=== PATIENT | female | born 1970 | race Caucasian/White ===

== ENCOUNTER 2017-04-16 14:24 | Emergency (ER) | payer BC ==
--- NOTE | 2017-04-16 16:08 | RAD ---
HISTORY: Left knee injury, patellar dislocation COMPARISONS: February 25, 2009 VIEWS: 2, Frontal and lateral views of the left knee FINDINGS: BONE DENSITY: Normal. BONES: There is no displaced fracture. JOINTS: There is no arthropathy. ALIGNMENT: There is no dislocation. SOFT TISSUES: Unremarkable. OTHER FINDINGS: None. IMPRESSION: NO ACUTE OSSEOUS INJURY. IF SYMPTOMS PERSIST, RECOMMEND REPEAT IMAGING.
--- NOTE | 2017-04-16 16:49 | ED ---
I, Oh,Tom, scribed for Corazon Gil MD on 04/16/17 at 1534 . Lower Extremity - HPI Summary HPI Summary: This 46 t/o female presents to ED for LLE knee pain since 1330 AM this afternoon. Pt was pulling off vine off tree in her yard at time of onset when vine gave and her LLE knee destabilized. Pt states she heard "a pop". She reports abnormal appearance of LLE patella MEDICAL CSR. The abnormality however resolved after pt lied on her side and knee cap slid back in place. PMHx includes partial ACL tear at same LLE knee in 2009. Other PMHx includes Crohn's dz and idiopathic cardiomyopathy s/p pacer and ICD placement. Pt lives with her . She is nonsmoker, nondrinker, and non substance abuse. Primary care involves Matt Mahmood NP. - History of Current Complaint Chief Complaint: EDExtremityLower Stated Complaint: LT KNEE INJURY Time Seen by Provider: 04/16/17 14:48 Hx Obtained From: Patient, Medical Records Hx Last Menstrual Period: 01/15/15 Onset of Pain: Immediate Pain Intensity: 2 Pain Scale Used: 0-10 Numeric - Allergies/Home Medications Allergies/Adverse Reactions: Allergies Allergy/AdvReac Type Severity Reaction Status Date / Time No Known Allergies Allergy Verified 04/16/17 14:32 PMH/Surg Hx/FS Hx/Imm Hx Endocrine/Hematology History: Reports: Hx Thyroid Disease - HYPOTHROID Denies: Hx Diabetes, Hx Systemic Lupus Erythematosus Cardiovascular History: Reports: Hx Cardiomegaly, Hx Hypertension - ON MEDICATION FOR, Hx Pacemaker/ICD, Other Cardiovascular Problems/Disorders - CARDIOMYOPATHY- DR. COWAN FOLLOWS Denies: Hx Congestive Heart Failure Respiratory History: Reports: Hx Sleep Apnea Denies: Hx Asthma, Hx Chronic Obstructive Pulmonary Disease (COPD) GI History: Reports: Hx Crohn's Disease - CURRENTLY HAVING ABDOMINAL PAIN, Other GI Disorders - Crohns. last flare up 08/2012 Denies: Hx Ulcer History: Denies: Hx Dialysis, Hx Renal Disease Musculoskeletal History: Reports: Hx Arthritis - BOTH HANDS Denies: Hx Rheumatoid Arthritis Sensory History: Reports: Hx Contacts or Glasses - GLASSES Denies: Hx Hearing Aid Opthamlomology History: Reports: Hx Contacts or Glasses - GLASSES Psychiatric History: Reports: Hx Anxiety - ON MEDICATION FOR, Hx Depression - ON MEDICATION FOR - Cancer History Hx Chemotherapy: No - Surgical History Surgery Procedure, Year, and Place: [place]al [place] [place] 2009- [place] [place] Hx Anesthesia Reactions: No Infectious Disease History: No Infectious Disease History: Reports: Hx Shingles Denies: Hx Clostridium Difficile, Hx Hepatitis, Hx Human Immunodeficiency Virus (HIV), Hx of Known/Suspected MRSA, Hx Tuberculosis, Hx Known/Suspected VRE , Hx Known/Suspected VRSA, History Other Infectious Disease, Traveled Outside the [place] in Last 30 Days - Family History Known Family History: Positive: Other - Positive Breast CA to grandmother - Social History Alcohol Use: Rare Substance Use Type: Reports: None Smoking Status (MU): Former Smoker Type: Cigarettes Amount Used/How Often: 1 ppd X 20 YEARS Length of Time of Smoking/Using Tobacco: 25 years Have You Smoked in the Last Year: No Review of Systems Negative: Fever, Chills Positive: Other - LLE knee pain All Other Systems Reviewed And Are Negative: Yes Physical Exam Triage Information Reviewed: Yes Vital Signs On Initial Exam: Initial Vitals Temp Pulse Resp BP Pulse Ox 98.7 F 80 18 116/64 99 04/16/17 14:32 04/16/17 14:32 04/16/17 14:32 04/16/17 14:32 04/16/17 14:32 Vital Signs Reviewed: Yes Appearance: Positive: Well-Appearing, No Pain Distress Skin: Positive: Warm, Skin Color Reflects Adequate Perfusion Eyes: Positive: EOMI, ZAY Neck: Positive: Supple, Nontender Respiratory/Lung Sounds: Positive: Clear to Auscultation, Breath Sounds Present Cardiovascular: Positive: RRR, Pulses are Symmetrical in both Upper and Lower Extremities Musculoskeletal: Positive: Strength/ROM Intact - FROM without pain. Negative: Edema Left, Edema Right Neurological: Positive: Sensory/Motor Intact, Alert, Oriented to Person Place, Time Psychiatric: Positive: Affect/Mood Appropriate AVPU Assessment: Alert Diagnostics - Vital Signs Vital Signs Temp Pulse Resp BP Pulse Ox 04/16/17 14:32 98.7 F 80 18 116/64 99 - Laboratory Lab Statement: Any lab studies that have been ordered have been reviewed, and results considered in the medical decision making process. - Radiology LLE Knee Xray Interpretation: No Acute Changes - NO ACUTE OSSEOUS INJURY. IF SYMPTOMS PERSIST, RECOMMEND REPEAT IMAGING. Radiology Interpretation Completed By: Radiologist Lower Extremity Course/Dx - Course Course Of Treatment: classic description of a patellar disclocation that spontaneously reduced put in a knee immobilizer with ortho followup - Diagnoses Provider Diagnoses: Dislocation of left patella Discharge - Discharge Plan Condition: Stable Disposition: HOME Patient Education Materials: Patellar Dislocation (ED) Referrals: Matt Mahmood NP [Primary Care Provider] - 2 Days Reilly Gutiérrez MD [Medical Doctor] - 2 Days The documentation as recorded by the Santo jeter Soohyun accurately reflects the service I personally performed and the decisions made by , Corazon Gil MD.
[2017-04-16 16:50] VITALS: BP 106/56
== END 2017-04-16 16:49 | disposition home or self-care (01) ==
LOC: ED 14:24
DX: S83.005A Unspecified dislocation of left patella, initial encounter (principal); Z87.891 Personal history of nicotine dependence; X50.0XXA Overexertion from strenuous movement or load, initial encounter; Y93.H2 Activity, gardening and landscaping; Y92.9 Unspecified place or not applicable; E03.9 Hypothyroidism, unspecified; F32.9 Major depressive disorder, single episode, unspecified; F41.9 Anxiety disorder, unspecified
CPT/HCPCS: 99281

== ENCOUNTER 2017-08-10 12:25 | Observation (INO) | payer BC ==
[2017-08-10] MEDS ORDERED: Aspirin Low Dose CHEW TAB* 81 MG PO ONE (12:50)
--- NOTE | 2017-08-10 13:15 | RAD ---
INDICATION: Chest pain COMPARISON: January 13, 2016 TECHNIQUE: An AP portable view obtained at 1254 hours is submitted. FINDINGS: Bones/Soft Tissues: There are no acute bony findings. There is left-sided cardiac pacemaker/defibrillator Cardiomediastinal: The cardiomediastinal silhouette is normal. Lungs: There are no infiltrates. Pleura: There are no pleural effusions. Other: None IMPRESSION: POSTOPERATIVE CHANGE. NO ACTIVE DISEASE.
[2017-08-10 13:49] LABS: Hematocrit 36 % (35-47); Hemoglobin 12.8 g/dl (12.0-16.0); Mean Corpuscular HGB Conc 35 g/dl (31-36); Mean Corpuscular Hemoglobin 33 pg (27-31); Mean Corpuscular Volume 93 fL (80-97); Mean Platelet Volume 8 um3 (7.4-10.4); Red Blood Count 3.86 10^6/ul (4.0-5.4); Red Cell Distribution Width 12 % (10.5-15); White Blood Count 9.8 10^3/ul (3.5-10.8)
[2017-08-10] MEDS ORDERED: Nitroglycerin TAB 0.4 MG* 0.4 MG TAB SL ONE (13:50)
[2017-08-10 14:18] LABS: Albumin 3.7 g/dL (3.2-5.2); BUN/Creatinine Ratio 15.3 (8-20); Calcium 8.9 mg/dL (8.6-10.3); EGFR African American 78.2 (>60); EGFR Non-African American 60.8 (>60); Globulin 3.5 g/dL (2-4); Potassium 3.7 mmol/L (3.5-5.0); Total Bilirubin 0.3 mg/dL (0.2-1.0); Total Protein 7.2 g/dL (6.4-8.9)
[2017-08-10] MEDS ORDERED: Iohexol 350* (CONTRAST) 500 ML MDV IV ONE (14:21)
--- NOTE | 2017-08-10 15:20 | RAD ---
INDICATION: LEFT side pleuritic chest pain. Idiopathic myopathy. COMPARISON: August 10, 2017 chest radiograph and March 08, [address] TECHNIQUE: Multidetector CT images were obtained from the lung apices to the upper abdomen with 82 mL Omnipaque 350 IV contrast. Pulmonary angiogram protocol. Multiplanar reformation including with maximum intensity projection. REPORT: Clear lungs and pleural spaces. Negative for pneumothorax. Negative for thoracic lymphadenopathy. Upper normal heart size. Negative for pericardial effusion. RIGHT atrial, RIGHT ventricle, and coronary sinus pacemaker leads. Normal diameter thoracic aorta. Negative for dissection of the thoracic aorta. No filling defects are identified from the main to the subsegmental pulmonary arteries to indicate presence of a pulmonary embolism. Images through the upper abdomen are remarkable for fatty infiltration of the liver. IMPRESSION: 1. Negative for pulmonary embolism. 2. Negative for pulmonary infiltrate, pleural effusion, pneumothorax. 3. No etiology for LEFT side pleuritic chest pain evident.
[2017-08-10] MEDS ORDERED: Nitroglycerin 2% OINT* 1 GM PAK TOPICAL ONE (15:23)
[2017-08-10] MEDS ORDERED: Al Hydrox/Mg Hydrox/Simet LIQ* 30 ML UDC PO PRN (15:48)
[2017-08-10] MEDS ORDERED: Ondansetron INJ* 2 MG/ML VIAL IV PRN (15:48)
[2017-08-10] MEDS ORDERED: Acetaminophen TAB* 325 MG PO PRN (15:48)
[2017-08-10] MEDS ORDERED: Morphine INJ* 2 MG/ML 1 ML SYRINGE (TWO MG - NEW SYRINGE VERSION) IV PRN (15:48)
[2017-08-10] MEDS: Heparin VIAL(*) 5000 UNITS/ML VIAL (FIVE THOUSAND) SUBCUT SCH (21:14)
[2017-08-10] MEDS: Carvedilol TAB* 25 MG PO SCH (21:14)
[2017-08-10] MEDS ORDERED: traZODone TAB* 50 MG TAB PO SCH (22:00)
[2017-08-10] MEDS: CMCS: Mesalamine CAP(NF) 500 MG CAP PO SCH (22:02)
[2017-08-10] MEDS: Potassium Chlor TAB* 20 MEQ TAB.ER PO SCH (22:02)
[2017-08-11] MEDS: Heparin VIAL(*) 5000 UNITS/ML VIAL (FIVE THOUSAND) SUBCUT SCH ×2 (05:23→13:00)
[2017-08-11] MEDS: Carvedilol TAB* 25 MG PO SCH (08:24)
[2017-08-11] MEDS: Potassium Chlor TAB* 20 MEQ TAB.ER PO SCH (08:25)
[2017-08-11] MEDS: CMCS: Mesalamine CAP(NF) 500 MG CAP PO SCH ×2 (08:26→13:01)
[2017-08-11] MEDS ORDERED: Regadenoson* 0.4 MG/5 ML SYRINGE ONE (10:34)
[2017-08-11] MEDS ORDERED: Aminophylline IV* 25 MG/ML 10 ML VIAL ONE (10:35)
--- NOTE | 2017-08-11 11:49 | RAD ---
HISTORY: Chest pain COMPARISONS: None TECHNIQUE: A 1 day stress/rest myocardial perfusion study was performed, with exercise stress. The exercise portion was performed using the Juan Francisco protocol, for a total METs of 10.1. The stress portion was monitored by Dr. Naranjo. Gated SPECT imaging was performed, with CT-based attenuation correction DOSE: Stress: Technetium 99m tetrofosmin, 25.73 millicuries, injected at 10:50 AM on August 11, 2017 Rest: Technetium 99m tetrofosmin, 10.3 millicuries, injected at 8:10 AM on August 11, 2017 Pharmacologic agent: None FINDINGS: CARDIAC MONITORING: Peak heart rate of 147 bpm, 85% of predicted EF: 61 % TID: 0.98 MOTION: Normal motion, with normal wall thickening. PERFUSION: Evaluation somewhat limited by submaximal stress. There is physiologic apical thinning. OTHER: None IMPRESSION: NO SIGNIFICANT FIXED OR REVERSIBLE PERFUSION DEFECT ASSESSMENT: LOW RISK. Based on imaging criteria from ACC/AHA 2002. Guideline Update for the Management of Patient's with Chronic Stable Angina, table 23. Noninvasive Risk Stratification.
[2017-08-11] MEDS ORDERED: Spironolactone TAB* 25 MG PO SCH (12:30)
[2017-08-11 13:00] VITALS: BP 118/67
[2017-08-11] MEDS ORDERED: Lisinopril TAB* 10 MG PO SCH (13:00)
[2017-08-11] MEDS ORDERED: Hydrochlorothiazide TAB* 25 MG PO SCH (13:00)
[2017-08-11] MEDS ORDERED: Venlafaxine EXT RELEASE CAP* 75 MG PO SCH (13:00)
[2017-08-11] MEDS ORDERED: Levothyroxine TAB* 50 MCG TAB PO SCH (13:00)
--- NOTE | 2017-08-18 15:09 | ED ---
Jack Vigil Alfonso, scribed for Stephen Tate MD on 08/10/17 at 1320 . HPI Chest Pain - HPI Summary HPI Summary: This patient is a 47 year old F presenting to [facility] with a chief complaint of left-sided under the armpit and in the breast CP since 0000 today, which woke her up from sleep. The CP does not radiate. The CP is intermittent and occurred again at 0300, and later today at work. The patient rates the aching, squeezing , and dull pain 2/10 in severity. Symptoms aggravated by deep breaths. Symptoms alleviated by nothing. Patient denies fever, cough, calf swelling, and calf pain. Former smoker (quit in 2009). She denies recent travels. She denies recent illness. 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 She had a pacemaker placed in 2009. - History of Current Complaint Chief Complaint: EDChestPainROMI Time Seen by Provider: 08/10/17 12:49 Hx Obtained From: Patient Onset/Duration: Started Hours Ago - 0000 today, Still Present Timing: Intermittent Current Severity: Mild Pain Intensity: 2 Pain Scale Used: 0-10 Numeric Chest Pain Location: Discrete at: - left-sided under the armpit and in the breast Chest Pain Radiates: No Character: Other: - aching, squeezing, and dull Aggravating Factor(s): Deep Breaths Alleviating Factor(s): Nothing Associated Signs and Symptoms: Positive: Other: - denies fever, cough, calf swelling, and calf pain - Allergy/Home Medications Allergies/Adverse Reactions: Allergies Allergy/AdvReac Type Severity Reaction Status Date / Time No Known Allergies Allergy Verified 08/10/17 12:32 PMH/Surg Hx/FS Hx/Imm Hx Endocrine/Hematology History: Reports: Hx Thyroid Disease - HYPOTHROID Denies: Hx Diabetes, Hx Systemic Lupus Erythematosus Cardiovascular History: Reports: Hx Cardiomegaly, Hx Hypertension - ON MEDICATION FOR, Hx Pacemaker/ICD, Other Cardiovascular Problems/Disorders - CARDIOMYOPATHY- DR. MOSES FOLLOWS Denies: Hx Congestive Heart Failure Respiratory History: Reports: Hx Sleep Apnea Denies: Hx Asthma, Hx Chronic Obstructive Pulmonary Disease (COPD) GI History: Reports: Hx Crohn's Disease - CURRENTLY HAVING ABDOMINAL PAIN, Other GI Disorders - Crohns. last flare up 08/2012 Denies: Hx Ulcer History: Denies: Hx Dialysis, Hx Renal Disease Musculoskeletal History: Reports: Hx Arthritis - BOTH HANDS Denies: Hx Rheumatoid Arthritis, Hx Osteoporosis Sensory History: Reports: Hx Contacts or Glasses - GLASSES Denies: Hx Hearing Aid Opthamlomology History: Reports: Hx Contacts or Glasses - GLASSES Psychiatric History: Reports: Hx Anxiety - ON MEDICATION FOR, Hx Depression - ON MEDICATION FOR - Cancer History Hx Chemotherapy: No - Surgical History Surgery Procedure, Year, and Place: Tubal ligation 1997[place] [place]; pacemaker 2009- [place] [place] Hx Anesthesia Reactions: No Infectious Disease History: No Infectious Disease History: Reports: Hx Shingles Denies: Hx Clostridium Difficile, Hx Hepatitis, Hx Human Immunodeficiency Virus (HIV), Hx of Known/Suspected MRSA, Hx Tuberculosis, Hx Known/Suspected VRE , Hx Known/Suspected VRSA, History Other Infectious Disease, Traveled Outside the in Last 30 Days - Family History Known Family History: Positive: Other - Positive Breast CA to grandmother - Social History Alcohol Use: Rare Substance Use Type: Reports: None Smoking Status (MU): Former Smoker - Quit in 2009 Type: Cigarettes Amount Used/How Often: 1 ppd X 20 YEARS Length of Time of Smoking/Using Tobacco: 25 years Have You Smoked in the Last Year: No Review of Systems Negative: Fever, Chills Negative: Erythema Negative: Sore Throat Positive: Chest Pain Negative: Shortness Of Breath, Cough Negative: Abdominal Pain, Vomiting, Nausea Negative: dysuria, hematuria Positive: Other - Negative calf swelling, and calf pain. Negative: Myalgia, Edema Negative: Rash Neurological: Other - Negative dizziness All Other Systems Reviewed And Are Negative: Yes Physical Exam Triage Information Reviewed: Yes Vital Signs On Initial Exam: Initial Vitals Temp Pulse Resp BP Pulse Ox 98.6 F 77 16 120/80 99 08/10/17 12:32 08/10/17 12:32 08/10/17 12:32 08/10/17 12:32 08/10/17 12:32 Vital Signs Reviewed: Yes Appearance: Positive: Well-Appearing, No Pain Distress, Obese Skin: Positive: Warm, Dry Head/Face: Positive: Normal Head/Face Inspection Eyes: Positive: Conjunctiva Clear Neck: Positive: Other: - Musculoskeletal ROM normal neck. (-) JVD, (-) Stridor, (-) Tracheal deviation, (-) Cervical adenopathy Respiratory/Lung Sounds: Positive: Other - Effort normal. (-) Respiratory distress, (-) Wheezes, (-) Rales Cardiovascular: Positive: RRR, Other - Heart sounds normal; Intact distal pulses ; The pedal pulses are 2+ and symmetric. Radial pulses are 2+ and symmetric. (- ) Murmur Abdomen Description: Positive: Nontender, Soft, Other: - No rebound. Negative: Distended, Guarding Musculoskeletal: Negative: Edema Left, Edema Right Neurological: Positive: Alert, Oriented to Person Place, Time Psychiatric: Positive: Affect/Mood Appropriate - Elvis Coma Scale Coma Scale Total: 15 Diagnostics - Vital Signs Vital Signs Temp Pulse Resp BP Pulse Ox 08/10/17 12:51 76 13 97 08/10/17 12:49 119/76 08/10/17 12:32 98.6 F 77 16 120/80 99 - Laboratory Result Diagrams: 08/10/17 13:30 08/10/17 13:30 Lab Statement: Any lab studies that have been ordered have been reviewed, and results considered in the medical decision making process. - Radiology CXR Radiology Interpretation Completed By: Radiologist - POSTOPERATIVE CHANGE. NO ACTIVE DISEASE. ED physician has reviewed this radiology report and agrees. - CT CTA Chest CT Interpretation Completed By: Radiologist - 1. Negative for pulmonary embolism. 2. Negative for pulmonary infiltrate, pleural effusion, pneumothorax. 3. No etiology for LEFT side pleuritic chest pain evident. ED physician has reviewed this radiology report and agrees. - EKG 1241 Cardiac Rate: NL - BPM 74 EKG Interpretation: Paced rhythm. No STEMI. Re-Evaluation - Re-Evaluation First Eval Re-Evaluation Time: 15:23 Change: Improved Comment: CP is resolved with NTG. Chest Pain Course/Dx - Course Assessment/Plan: This patient is a 47 year old F presenting to [facility] with a chief complaint of left-sided under the armpit and in the breast CP since 0000 today, which woke her up from sleep. The CP does not radiate. The CP is intermittent and occurred again at 0300, and later today at work. The patient rates the aching, squeezing, and dull pain 2/10 in severity. Symptoms aggravated by deep breaths. Symptoms alleviated by nothing. Patient denies fever , cough, calf swelling, and calf pain. Former smoker (quit in 2009). She denies recent travels. She denies recent illness. 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 She had a pacemaker placed in 2009. An EKG reveals paced rhythm. CXR reveals POSTOPERATIVE CHANGE. NO ACTIVE DISEASE. ED physician has reviewed this radiology report and agrees. CTA Chest reveals 1. Negative for pulmonary embolism. 2. Negative for pulmonary infiltrate, pleural effusion, pneumothorax. 3. No etiology for LEFT side pleuritic chest pain evident. ED physician has reviewed this radiology report and agrees. We discussed patient care with Dr. Soria (hospitalist) and they agreed to admit the patient. The patient will be admitted under Dr. Wilkinson services. The patient is agreeable with this plan. - Diagnoses Provider Diagnoses: Chest pain, unspecified - Provider Notifications Discussed Care Of Patient With: Yariel Soria Time Discussed With Above Provider: 14:35 Instructed by Provider To: Other - We discussed patient care with Dr. Soria ( hospitalist) and they agreed to admit the patient. Discharge - Discharge Plan Condition: Stable Disposition: ADMITTED TO [facility] Referrals: Matt Mahmood, LICENSING ANALYST [Primary Care Provider] - The documentation as recorded by the Jack jeter Alfonso accurately reflects the service I personally performed and the decisions made by , Stephen Tate MD.
--- NOTE | 2017-09-08 08:25 | DS ---
CC: Matt Mahmood NP* HISTORY AND PHYSICAL AND DISCHARGE SUMMARY COMBINED REPORT: DATE OF ADMISSION: 08/10/17 DATE OF DISCHARGE: 08/11/17 PRIMARY CARE PROVIDER: Matt Mahmood NP. CHIEF COMPLAINT: Chest pain - "under my armpit and in my breast." HISTORY OF PRESENT ILLNESS: Ms. Sal is a pleasant 47-year-old female with past medical history of Crohn's disease, cardiomyopathy of unclear etiology, hypothyroidism, hypertension, status post pacemaker, who now presents with left - sided chest pain. The patient states that she had pain "under my armpit and in my breast" since midnight the morning of admission. The patient awakened from sleep with this chest discomfort. It did not radiate. It was intermittent and reoccurred at 3 a.m. She went to work and the pain happened again. The patient described it is aching, squeezing, and dull with 2/10 in severity. It was aggravated with deep breaths. She did not take anything to alleviate the pain. There was no accompanying fever, cough, calf swelling, or calf pain. There was no recent travel and the patient describes quitting smoking in 2009. She denied any recent illnesses. She sees Dr. Pipo Moses as her outpatient capsule filler and had a pacemaker in 2010 secondary to cardiomyopathy of unclear etiology. PAST MEDICAL HISTORY: 1. Pacemaker in situ. 2. Crohn's disease. 3. Cardiomyopathy. 4. Hypothyroidism. 5. Hypertension. 6. History of pacemaker placement in 2009. 7. History of D and C in the . 8. History of wisdom tooth extractions. OUTPATIENT MEDICATIONS: 1. Chantix 1 mg by mouth daily. 2. Cholecalciferol 2000 units by mouth daily. 3. Cyanocobalamin/vitamin B12 1000 mcg IM every 2 weeks. 4. Norethindrone 0.35 mg daily. 5. Venlafaxine/Effexor 150 mg by mouth daily. 6. Mesalamine/Pentasa 500 mg by mouth 3 times daily. 7. Coreg 12.5 mg by mouth twice daily. 8. Hydrochlorothiazide 12.5 mg by mouth daily. 9. Levothyroxine/Synthroid 50 mcg by mouth daily. 10. Lisinopril 10 mg by mouth daily. 11. Potassium chloride 20 mEq one tab by mouth twice daily. 12. Spironolactone 25 mg by mouth daily. 13. Trazodone 50 mg by mouth at bedtime. ALLERGIES: No known drug allergies. FAMILY HISTORY: Significant for duodenal cancer, hypertension, and renal disease by record review. 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 The patient has quit smoking in 2009 and drinks alcohol rarely. REVIEW OF SYSTEMS: A review of 14 systems was accomplished. This was largely negative except for the pertinent positives mentioned above in the HPI and past medical history. She did describe some feelings of anxiety and other GI symptoms consistent with gastroesophageal reflux. PHYSICAL EXAMINATION ON ADMISSION: Vitals: Temperature 98.6 degrees Fahrenheit , pulse 77, respirations 16, oxygen saturation 99% on room air, blood pressure 120/80. General Appearance: No apparent distress. Awake, alert, and oriented x3. Answered questions appropriately. HEENT: Oropharynx is clear. Mucous membranes are moist. No posterior pharyngeal erythema or exudate. Chest: Clear breath sounds anteriorly and posteriorly. No chest wall tenderness. No breast tenderness. Heart: Regular rate and rhythm. No murmurs, rubs, or gallops appreciated. Pacemaker in situ under her left clavicle in the subclavicular fossa. Abdomen: Soft and nontender. Skin: Dry and intact without rashes, lesions, or breakdown. Extremities: Without clubbing, cyanosis , or edema. Normal muscle bulk, did not test ambulation. Neuro: Normal sensation and motor strength. Psych: Normal affect. No acute anxiety or depression. Lymph: No adenopathy appreciated. ADMISSION DATA: White blood cell count 9.8, hemoglobin 12.8, platelets 409. Blood chemistries were generally within normal limits save a modestly elevated creatinine of 0.89, which is at her baseline. LFTs were normal. Troponin was 0.00 x3. Albumin 3.7. EKG on 08/10 at 12:41 p.m. was atrial sensed ventricular paced rhythm at 74 beats per minute with a right bundle branch pattern consistent with the modality of pacing, and no ST or T-wave changes of concern to suggest ischemia. Chest/thorax CTA done at 1349 hours was negative for PE or pulmonary infiltrate , pleural effusion or pneumothorax and did not show an obvious etiology for the left- sided pleuritic chest pain. IMPRESSION: Ms. Sal is a 47-year-old female with chest pain of unclear etiology that was persistent with some concerning characteristics, who is to be placed on observation status and ruled out for coronary ischemia. The decision to admit the patient was prior to the receipt of 3 negative troponins and the plan is to proceed with a nuclear stress test given the patient's abnormal EKG at baseline. PLAN BY MEDICAL PROBLEM: 1. Chest pain - concern for coronary disease with history of smoking, obesity, hyperlipidemia, and hypertension, as well as concerning characteristics of chest pain and history of cardiomyopathy. - Cycle troponins and repeat EKG x3 to rule out ischemia and then proceed with nuclear exercise stress test. - Continue patient's cardiac medications including aspirin, beta-ivette and CLAUDY inhibitor. Check cholesterol. - Interrogate pacemaker for potential arrhythmia. 2. Outpatient management of all other medical problems as per existing medication strategy. 3. Add proton pump inhibitor for possible reflux component of chest discomfort. HISTORY OF PRESENT ILLNESS AND HOSPITAL COURSE: Please see the H and P above by me on 08/10/17. The patient did well overnight , did not re-experience chest pain. She proceeded with an exercise nuclear stress test with same-day protocol, which was rated as "low risk" by AHA/SILVIA criteria. The patient did not re-experience chest pain. She is going to be started on a proton pump inhibitor and discharged with instructions to follow up with Matt Mahmood in the next 1 to 2 weeks. Her outpatient medication list is the same as above, but will also include omeprazole 20 mg by mouth daily, 30 capsules prescribed. FOLLOWUP APPOINTMENT: On 08/16/17 at 11:30 a.m. with Matt Mahmood. Patient was given return to ED instructions if she re-experiences chest pain or any worrisome symptoms. CONDITION AT DISCHARGE: Stable. [id number]/[facility] #: [id number] JOHANNA
== END 2017-08-11 15:30 | disposition home or self-care (01) ==
LOC: ED 12:25 → MEDTELE 15:48
PROVIDERS: ADMIT Internal Medicine; ATTEND Internal Medicine
DX: R07.9 Chest pain, unspecified (principal); Z95.0 Presence of cardiac pacemaker; I42.9 Cardiomyopathy, unspecified; E03.9 Hypothyroidism, unspecified; Z79.899 Other long term (current) drug therapy; Z87.891 Personal history of nicotine dependence
CPT/HCPCS: 36415; 71010; 71275; 78452; 80053; 83605; 84484; 85025; 93005; 93017; 96372; 99284; A9270-GY; A9502; G0378; J0280; J1644; J2785; Q9967